=== PATIENT | male | born 1970 | race Caucasian/White ===

== ENCOUNTER → 2017-07-05 | Outpatient (CLI) | payer SELFPAY ==
--- NOTE | 2017-07-05 15:32 | CT ---
EXAM DESCRIPTION: Abdomen/Pelvis w/wo Contrast: Computed Tomography. CLINICAL HISTORY: MALIGNANT NEOPLASM OF TESTICLE COMPARISON: CT scan chest on the same visit. CT scan of the abdomen 05/24/2006. TECHNIQUE: Spiral-axial scans at 5.0 mm intervals through the abdomen and pelvis, after nonionic IV contrast. No oral contrast. Coronal and sagittal 2.0 mm reconstructions. Delayed scans, liver through the pelvis. Axial-spiral 5mm. No adverse reactions. Total Exam DLP: 4340.25 mGy-cm. This exam was performed according to our departmental dose-optimization program which includes automated exposure control, adjustment of the mA and/or kV according to patient size and/or use of iterative reconstruction technique; to reduce radiation dose to as low as reasonably achievable (ALARA). FINDINGS: Liver, Stomach, Spleen, Adrenal Glands: Spleen measures 14.3 x 14.0 cm. Homogeneous enhancement. Homogeneous enhancement of the liver with long axis of the right lobe 23.8 cm. No focal hepatic lesions or dilated ducts. Stomach is negative. Adrenal glands are unremarkable. Pancreas, Gallbladder, Ducts: Gallbladder visualized. Common bile duct normal caliber. Pancreas unremarkable. Kidneys and Ureters: 3.5 mm radiodense stone in the upper aspect of the inferior collecting system left kidney. No obstruction. No hydronephrosis. Small cortical cysts posterior right kidney. Mesentery: No stranding or fascial thickening. No free air free fluid or ascites. Aorta: Minimal atherosclerotic calcifications. Surgical clips between the aortocaval vessels in the psoas muscles at the level of the bifurcation. Small Bowel: Normal caliber with minimal gas no significant air-fluid levels. Terminal Ileum/Cecum: Normal caliber of the TI and the appendix. Gas and fecal material in the cecum. Normal density of the surrounding fat. Colon: Gas and fecal material in the colon. Moderate redundancy of the sigmoid which is minimally distended by gas. Pelvic Organs: Prostate gland abutting the urinary bladder no wall thickening. No free fluid. Seminal vesicles and pelvic lymph nodes are unremarkable. Surgical clips are noted. Spine and Bony Pelvis: Physiologic appearance of the spine with minimal curvature. Hypertrophic superior lateral acetabula with minimal over coverage bilaterally. No sclerotic or destructive lesions. Abdominal Wall/Back Soft Tissues: Right fatty inguinal hernia containing spermatic cord. No spermatic cord in the left inguinal canal. No mass. IMPRESSION: 1. Hepatosplenomegaly. This could be due to primary process or secondary to chemotherapy or other remote abnormality. No ascites. 2. 3.5 mm nonobstructing radiodense stone in the left kidney. The stone with smaller on the prior study. 3. No remote soft tissue masses or adenopathy in the abdomen or pelvis. No free fluid. 4. Fatty right inguinal canal not containing bowel. No mass. Larger diameter than on the prior study. Electronically signed by: Boy Fleming MD 07/05/2017 3:31 PM [facility]
--- NOTE | 2017-07-05 16:08 | CT ---
EXAM DESCRIPTION: Chest w/Contrast : Computed Tomography. CLINICAL HISTORY: TESTICULAR CA COMPARISON: CT scan of the abdomen and pelvis on this visit. CT scan of the thorax with contrast 05/29/2006. TECHNIQUE: Spiral-axial scans at 5.0 mm intervals through the lungs and thorax with IV contrast. 2.5 mm lung algorithm axial reconstructions. Coronal and sagittal 2.0 Mm reconstructions. No adverse reactions. Total Exam DLP: 898.98 mGy-cm. This exam was performed according to our departmental dose-optimization program which includes automated exposure control, adjustment of the mA and/or kV according to patient size and/or use of iterative reconstruction technique; to reduce radiation dose to as low as reasonably achievable (ALARA). FINDINGS: Multiple bilateral soft tissue nodules throughout the lung parenchyma more numerous in the right lung compared to the left. These multiple nodules were not seen on the prior study. Multiple nodules abutting the pleura bilaterally. Thickening of the left major fissure. No definite calcification in these nodules. The nodules range in size from less than 5 mm to 1.5 cm. Conglomeration of nodules in the right middle lobe and right upper lobe without calcification. Plaque-like group of nodules abutting the anterior lateral pleura of the right middle lobe. No pleural effusion, no pneumothorax. Mild soft tissue mass abutting the right side of the trachea with short axis measuring 1.5 cm. Largest soft tissue masses throughout the mediastinum with calcifications in the azygos space, AP window, subcarinal space, posterior mediastinum abutting the esophagus, superior and inferior janine bilaterally. Most of these nodes appear stable except for increasing calcifications since the prior study but there are increased subcarinal nodes, and right paratracheal nodes have also enlarged since the prior study. Hilar nodes and AP window nodes appear stable or slightly smaller. Posterior upper paraesophageal nodes are enlarged since the prior study. Mass effect on the esophagus. Heterogeneous enhancement of the thyroid gland. No enlarged axillary lymph nodes or calcifications. No soft tissue masses abutting the thyroid glands. IMPRESSION: 1. 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 Not present on the prior study and interpreted to be metastatic testicular cancer. No pleural effusion or pneumothorax or consolidating pneumonia. 2. Hilar or mediastinal adenopathy with calcifications. The calcified lymph nodes appears stable, with new adenopathy as noted above. CRITICAL COMMUNICATION: The critical value was discussed directly by phone with Dr. Anuel Brady at approximately 1600 hours, on July 05, 2017. Electronically signed by: Boy Fleming MD 07/05/2017 4:07 PM [facility]
== END ==
LOC: CT 08:26
PROVIDERS: ATTEND Family Medicine
DX: C62.10 Malignant neoplasm of unspecified descended testis (principal); C62.90 Malignant neoplasm of unspecified testis, unspecified whether descended or undescended; R91.1 Solitary pulmonary nodule; N20.0 Calculus of kidney

== ENCOUNTER → 2018-04-11 | Outpatient (CLI) | payer OTHER | LOC: YCFC.O 14:18 | PROVIDERS: ATTEND Family Medicine | DX: N39.0 Urinary tract infection, site not specified (principal) ==